=== PATIENT | male | born 1985 | race Caucasian/White ===

== ENCOUNTER 2017-01-07 10:24 | Emergency (ER) | payer BC ==
[2017-01-07 10:34] VITALS: BP 140/90
[2017-01-07] MEDS ORDERED: KETOROLAC TROMETHAMINE 60 MG/2 ML VIAL IM ONE ×2 (10:48→10:56)
[2017-01-07] MEDS ORDERED: ORPHENADRINE CITRATE 30 MG/ML VIAL IM ONE (10:48)
[2017-01-07] MEDS ORDERED: ORPHENADRINE CITRATE 30 MG/ML VIAL ONE (10:56)
--- NOTE | 2017-01-07 11:34 | ERNOTE ---
Back Pain ER HPI Presenting Symptoms: injury/pain to back Time Seen by Provider: 01/07/17 10:39 Source: patient Exam Limitations: no limitations Immunizations: IMMUNIZATION HX Immunizations Up to Date Yes Allergies/Adverse Reactions: Allergies No Known Allergies Allergy (Verified 01/07/17 10:29) Home Medications: HOME MEDICATIONS Cyclobenzaprine HCl [Flexeril] 10 mg PO TID PRN #30 tab 01/07/17 [Last Taken Unknown] Naproxen [Naprosyn] 500 mg PO BID #60 tablet 01/07/17 [Last Taken Unknown] Narrative: Patient slipped on the stairs 2 days ago and landed on his right thoracic area just below the shoulder blade producing abrasion and moderate pain. Timing: Reports: constant Quality/Severity: Reports: moderate Location of pain: Reports: mid back Recent Injury?: Reports: yes Possible Precipitating Factor: Reports: fall/near fall Modifying Factors - (Improves): Reports: nothing Modifying Factors - (Worsens): Reports: movement to right, movement to left Associated Symptoms: Reports: none Review of Systems - Review of Systems Constitutional: Present: See HPI EYE: Present: no symptoms reported ENT: Present: no symptoms reported Respiratory: Present: no symptoms reported Cardiology: Present: no symptoms reported, chest pain - chest wall pain Gastrointestinal/Abdominal: Present: no symptoms reported Genitourinary: Present: no symptoms reported Musculoskeletal: Present: no symptoms reported, muscle pain Skin: Present: no symptoms reported Neurological: Present: no symptoms reported Endocrine: Present: no symptoms reported Hematologic/Lymphatic: Present: no symptoms reported Psych: Present: no symptoms reported - Patient's Past Medical History Patient History - Medical: No pertinent hx Patient History - Cardiac/Respiratory: No pertinent hx Patient History - Cancer: No Hx of Cancer - Family History Mother Family History - Medical: No pertinent hx Father Family History - Medical: No pertinent hx - Social History Living Situations: home Smoking Status: Current every day smoker Have you smoked in the past 12 months: Yes Do you dip or chew tobacco: No Alcohol Use: occasionally Drug Use: none - Immunizations Immunizations Up to Date: Yes Physical Exam - Physical Exam General Appearance: Present: wd/wn, alert, moderate distress Eye Exam: Normal inspection: bilateral, PERRL: bilateral Ears, Nose, Throat: Present: normal ENT inspection, H, normal pharynx Neck: Present: normal inspection, nontender Respiratory: Present: no respiratory distress, normal breath sounds, no accessory muscle use, lungs clear, chest tenderness Cardiovascular/Chest: Present: regular rate, rhythm, no murmur, normal peripheral pulses Gastrointestinal/Abdominal: Present: normal bowel sounds, nontender, nondistended, soft, no organomegaly Rectal Exam: Present: deferred Male Genitals Exam: Present: deferred Back Exam: Present: normal inspection, normal range of motion Extremity Exam: Present: normal inspection, non-tender, no edema, normal range of motion Neurological Exam: Present: alert, oriented, normal mood/affect Skin Exam: Present: normal color, warm/dry Lymphatic Exam: Present: no adenopathy ED Progress - Vital Signs Patient's Vital Signs:: I have reviewed the patient's vital signs. Vital Signs: Vital Signs 01/07/17 10:27 Temperature 37 C Pulse Rate 90 Respiratory 16 Rate Blood Pressure 140/90 O2 Sat by Pulse 96 Oximetry - X-Ray X-Ray #1 X-Ray: chest Interpretation: Reviewed by me - Progress/Reassessment Chief Complaint: Back Pain Progress:: Improved Plan - Plan Plan: Patient appears to have incurred a chest wall strain sprain and contusion. He does have an abrasion present as well. He is having some reactive muscle spasms likely from the injury so he'll be started on a nonsteroidal as well as a muscle relaxer. Departure Clinical Impression: Chest wall contusion Qualifiers: Encounter type: initial encounter Laterality: right Qualified Code(s): S20.211A - Contusion of right front wall of thorax, initial encounter - Departure Instructions: Chest Wall Pain, [id number], Abrasion, [id number] Referrals: Uvaldo Villegas MD [Primary Care Provider] - Prescriptions: Cyclobenzaprine HCl [Flexeril] 10 mg PO TID PRN #30 tab PRN Reason: MUSCLE SPASMS Naproxen [Naprosyn] 500 mg PO BID #60 tablet
== END 2017-01-07 11:36 | disposition home or self-care (01) ==
LOC: ER 10:24
DX: S20.211A Contusion of right front wall of thorax, initial encounter (principal); W10.8XXA Fall (on) (from) other stairs and steps, initial encounter; Y93.9 Activity, unspecified; Y92.9 Unspecified place or not applicable